=== PATIENT | female | born 1945 | race Two or more races ===

== ENCOUNTER 2018-06-21 10:53 | Outpatient (CLI) | payer MEDICARE, MEDICAID | END 2018-06-21 23:59 | disposition home or self-care (01) | LOC: WOU 10:53 | PROVIDERS: ATTEND Podiatrist Foot & Ankle Surgery | DX: M79.672 Pain in left foot (principal); R60.0 Localized edema; Z87.891 Personal history of nicotine dependence; Z96.653 Presence of artificial knee joint, bilateral; Z79.899 Other long term (current) drug therapy | CPT/HCPCS: G0463 ==

== ENCOUNTER 2019-05-08 23:35 | Emergency (ER) | payer MEDICARE, OTHER ==
[~2019-05-08] VITALS: Ht 162.6 cm; Wt 80.3 kg
--- NOTE | 2019-05-08 23:49 | NUR ---
DR DODGE IS AT THE BEDSIDE EVALUATING THE PT.
--- NOTE | 2019-05-08 23:55 | NUR ---
CXR IN PROGRESS AT THE BEDSIDE.
[2019-05-09 00:04] VITALS: BP 132/85
== END 2019-05-09 00:05 | disposition home or self-care (01) ==
LOC: ER 23:38
DX: J45.909 Unspecified asthma, uncomplicated (principal); I10 Essential (primary) hypertension; E11.9 Type 2 diabetes mellitus without complications; G89.29 Other chronic pain; M54.9 Dorsalgia, unspecified; E66.9 Obesity, unspecified; Z68.30 Body mass index [BMI] 30.0-30.9, adult; Z98.890 Other specified postprocedural states; Z88.0 Allergy status to penicillin
CPT/HCPCS: 71045-TC